=== PATIENT | male | born 2000 | race Caucasian/White ===

== ENCOUNTER 2024-03-04 13:35 | Emergency (ER) | payer MEDICAID ==
[~2024-03-04] VITALS: Ht 182.9 cm; Wt 67.5 kg
[2024-03-04] MEDS ORDERED: HYDR25CA PO (15:34)
[2024-03-04 15:36] VITALS: BP 118/63; PULSE 77; RESP 16; TEMP 98.1; O2SAT 96
[2024-03-04] MEDS: LORazepam 0.5 MG TAB PO ONE (15:55)
== END 2024-03-04 16:01 | disposition home or self-care (01) ==
LOC: ER 13:35
DX: F41.1 Generalized anxiety disorder (principal)